=== PATIENT | female | born 1980 | race Caucasian/White ===

== ENCOUNTER 2018-05-02 12:45 | Emergency (ER) | payer OTHER ==
[~2018-05-02] VITALS: Ht 157.5 cm; Wt 68.0 kg
[2018-05-02 13:46] LABS: URINE CLARITY CLEAR; URINE COLOR YELLOW; URINE PROTEIN (DIPSTICK) NEGATIVE (Negative); URINE SPECIFIC GRAVITY <= 1.005 (1.005-1.035)
[2018-05-02 13:47] LABS: URINE BILIRUBIN NEGATIVE (Negative); URINE BLOOD NEGATIVE (Negative); URINE GLUCOSE-RANDOM* NEGATIVE (Negative); URINE KETONES NEGATIVE (Negative); URINE LEUKOCYTES-REFLEX NEGATIVE (Negative); URINE NITRITE-REFLEX NEGATIVE (Negative); URINE UROBILINOGEN 0.2 E.U./dl (0.2-1.0)
[2018-05-02 14:02] VITALS: BP 99/65
[2018-05-02] MEDS ORDERED: NORCO 5-325 TA1 EACH PO (16:32)
[2018-05-02] MEDS ORDERED: MEDROLDOSEPACK PO (16:32)
== END 2018-05-02 17:06 | disposition home or self-care (01) ==
LOC: ER 12:45
PROVIDERS: Physician Assistant
DX: M54.5 Low back pain (principal); M25.521 Pain in right elbow; E06.3 Autoimmune thyroiditis